=== PATIENT | female | born 1980 ===

== ENCOUNTER 2016-11-14 08:08 | Emergency (ER) | payer BC, OTHER ==
--- NOTE | 2016-11-14 08:27 | UC ---
Throat Pain/Nasal Flex HPI - HPI Summary HPI Summary: complaint of nasal congestion, cough, and body aches that started 5 days ago felt slight shortness of breath d/t coughing on the first day mild sore throat productive cough today denies fever but has chills during the night, denies N/V/D hears wheezing occasionally at night coughing so hard she can't sleep has been taking aleve or ibuprofen with relief - History of Current Complaint Chief Complaint: UCRespiratory Stated Complaint: SOB,COUGH,THROAT Time Seen by Provider: 11/14/16 08:11 Hx Obtained From: Patient Hx Last Menstrual Period: spotting 3 weeks - Allergies/Home Medications Allergies/Adverse Reactions: Allergies Allergy/AdvReac Type Severity Reaction Status Date / Time No Known Allergies Allergy Verified 11/14/16 08:19 Home Medications: Home Medications Aleve 220mg 220 mg PO Q12HR PRN 11/14/16 [History Confirmed 11/14/16] PMH/Surg Hx/FS Hx/Imm Hx Previously Healthy: Yes - Surgical History Surgical History: Yes - 11/2013 - Family History Known Family History: Negative: Cardiac Disease, Hypertension, Diabetes - Social History Occupation: Employed Full-time Lives: With Family Alcohol Use: Rare Substance Use Type: None Smoking Status (MU): Former Smoker Review of Systems Constitutional: Chills, Fatigue Skin: Negative Eyes: Negative ENT: Sore Throat, Nasal Discharge Respiratory: Cough Cardiovascular: Negative Gastrointestinal: Negative Genitourinary: Negative Motor: Negative Neurovascular: Negative Musculoskeletal: Negative Neurological: Negative Psychological: Negative All Other Systems Reviewed And Are Negative: Yes Physical Exam Triage Information Reviewed: Yes Appearance: No Pain Distress, Well-Nourished Vital Signs: Initial Vital Signs Temp 99.7 F 11/14/16 08:11 Pulse 109 11/14/16 08:11 Resp 18 11/14/16 08:11 BP 116/61 11/14/16 08:11 Pulse Ox 98 11/14/16 08:11 Vital Signs Reviewed: Yes Eyes: Positive: Conjunctiva Clear ENT: Positive: Pharyngeal erythema, Nasal congestion, Nasal drainage, TMs normal. Negative: Tonsillar swelling, Tonsillar exudate Neck: Positive: No Lymphadenopathy Respiratory: Positive: Normal breath sounds, No respiratory distress, Wheezing - in upper [place] Cardiovascular: Positive: RRR, No Murmur, Pulses Normal, Brisk Capillary Refill Abdomen Description: Positive: Nontender, Soft Bowel Sounds: Positive: Present Musculoskeletal: Positive: No Edema Neurological: Positive: Alert Psychological Exam: Normal Skin Exam: Normal Re-Evaluation - Re-Evaluation First Eval Re-Evaluation Time: 09:08 Change: Improved Comment: wheezing resolved Throat Pain/Nasal Course/Dx - Course Course Of Treatment: exam completed. wheezing in upper lobes of lungs resolved with asthma. will treat for viral illnes- airway reactive symptoms- followup with PCP - Differential Dx/Diagnosis Differential Diagnosis/HQI/PQRI: URI, Other - bronchitis Provider Diagnoses: viral illness Discharge - Discharge Plan Condition: Stable Disposition: HOME Prescriptions: Albuterol HFA INHALER* [Ventolin HFA Inhaler*] 2 puff INH Q4H PRN #1 mdi PRN Reason: Wheezing Benzonatate CAP* [Tessalon 100 MG CAP*] 100 mg PO TID #30 cap predniSONE TAB* [Deltasone TAB*] 50 mg PO DAILY #5 tab Patient Education Materials: Bronchospasm (ED) Referrals: Radha Gutierrez MD [Primary Care Provider] - Additional Instructions: Please take prednisone as directed Use your albuterol inhaler every 4-6 hours when needed for wheezing, shortness of breath or uncontrolled coughing. Increase fluids and rest Take acetaminophen or ibuprofen for fever or pain Please review your discharge instructions. If your symptoms do not improve please call your primary care provider or return to urgent care.
[2016-11-14] MEDS ORDERED: Albuterol/Ipratropium NEB.SOL* Albuterol 2.5 MG/Ipratropium 0.5 MG 3 ML INH ONE (08:32)
[2016-11-14 08:45] VITALS: BP 116/61
== END 2016-11-14 09:20 | disposition home or self-care (01) ==
LOC: UCCORT 08:08
DX: B34.9 Viral infection, unspecified (principal); Z87.891 Personal history of nicotine dependence
CPT/HCPCS: 99202; A9270-GY; G0463

== ENCOUNTER 2016-11-16 21:29 | Emergency (ER) | payer OTHER ==
[2016-11-16 21:37] VITALS: BP 107/58
[2016-11-16] MEDS ORDERED: Azithromycin TAB* 250 MG PO ONE (21:51)
[2016-11-16] MEDS ORDERED: Ibuprofen TAB* 600 MG PO ONE (21:54)
--- NOTE | 2016-11-16 21:56 | UC ---
Respiratory Complaint HPI - HPI Summary HPI Summary: 36 female presents with complaints of cough, generalized ache and headache, chills and chest congestion that began 7 days ago. Patient was seen here 2 days ago and treated for a viral illness with prednisone, albuterol inhaler and tessalon pearls. Patient has been taking the medications for two days and does not feel they have helped her symptoms. Denies SOB and chest pain, no recent travel or antibiotic use. Denies nausea/vomiting, abdominal pain and ear pain. Admits to an irritated throat from coughing and raspy voice. Denies nasal congestion and sore throat. States cough is productive and appears to be phlegm with a green/yellow color sometimes. Denies PMHx no asthma. No other complaints at this time. No recent sick contacts. Denies current use of tobacco. - History of Current Complaint Chief Complaint: UCRespiratory Stated Complaint: COUGH, CHEST CONGESTION Time Seen by Provider: 11/16/16 21:32 Hx Obtained From: Patient Hx Last Menstrual Period: spotting 3 weeks Onset/Duration: Sudden Onset, Lasting Weeks - 1, Still Present, Worse Since Timing: Constant Severity Initially: Mild Severity Currently: Mild Pain Intensity: 3 Pain Scale Used: 0-10 Numeric Character: Cough: Productive - phlegm, green/yellow tinged sometimes Aggravating Factors: Deep Breaths, Recumbent Position Alleviating Factors: Bronchodilator, OTC Meds, Upright Position Associated Signs And Symptoms: Positive: Fever, Chills, Wheezing, URI - Allergies/Home Medications Allergies/Adverse Reactions: Allergies Allergy/AdvReac Type Severity Reaction Status Date / Time No Known Allergies Allergy Verified 11/16/16 21:37 PMH/Surg Hx/FS Hx/Imm Hx - Additional Past Medical History Additional PMH: Denies diabetes, htn, asthma and copd - Surgical History Surgical History: Yes - Family History Known Family History: Negative: Cardiac Disease, Hypertension, Diabetes - Social History Alcohol Use: Rare Substance Use Type: None Smoking Status (MU): Former Smoker - Immunization History Vaccination Up to Date: Yes Review of Systems Constitutional: Fever, Chills, Fatigue Eyes: Negative ENT: Sore Throat - irritated Respiratory: Cough Cardiovascular: Negative Gastrointestinal: Negative Motor: Negative Musculoskeletal: Myalgia Neurological: Headache All Other Systems Reviewed And Are Negative: Yes Physical Exam Triage Information Reviewed: Yes Appearance: No Pain Distress, Well-Nourished, Ill-Appearing - appears tired and coughing throughout exam Vital Signs: Initial Vital Signs Temp 100.4 F 11/16/16 21:31 Pulse 103 11/16/16 21:31 Resp 20 11/16/16 21:31 BP 107/58 11/16/16 21:31 Pulse Ox 98 11/16/16 21:31 low grade fever noted, tachycardia noted Vital Signs Reviewed: Yes Eyes: Positive: Conjunctiva Clear ENT: Positive: Normal ENT inspection, Hearing grossly normal, Pharynx normal, TMs normal Dental: Negative: Cervical Lymphadenopathy Neck: Positive: Supple, Nontender, No Lymphadenopathy Respiratory: Positive: Chest non-tender, Lungs clear, Normal breath sounds, No respiratory distress, No accessory muscle use, Other: - normal percussion and tactile fremitus. Negative: Respiratory distress, Decreased breath sounds, Accessory muscle use, Crackles, Rhonchi, Stridor, Wheezing, Plerual rub Cardiovascular: Positive: RRR, No Murmur, Pulses Normal, Brisk Capillary Refill Abdomen Description: Positive: Nontender, No Organomegaly, Soft Bowel Sounds: Positive: Present Musculoskeletal: Positive: Strength Intact, ROM Intact Neurological Exam: Normal Neurological: Positive: Alert Psychological Exam: Normal Skin Exam: Normal UC Diagnostic Evaluation - Laboratory O2 Sat by Pulse Oximetry: 98 Respiratory Course/Dx - Course Course Of Treatment: due to vital signs and length of symptoms without improvement. patient will be given an antibiotic at this time. continue prednisone, albuterol and cough medication. NSAIDs for pain and fever. treated with z -pack in case of CAP although lung sounds were normal bilaterally along with O2 sat. X-ray not obtained due to normal PE findings and treatment would not change at this time. Aware of worsening signs and symptoms. given ibuprofen while in office along with first dose of azithromycin. follow up with PCP. fluids and rest. - Differential Dx/Diagnosis Differential Diagnosis/HQI/PQRI: Bronchitis, Laryngitis, Lower Resp Infection, Sinusitis, Other - upper respiratory infection Provider Diagnoses: Acute Bronchitis Discharge - Discharge Plan Condition: Stable Disposition: HOME Prescriptions: Azithromycin TAB* [Zithromax TAB (Z-DINH) 250 mg #6 tabs] 250 mg PO DAILY #4 tab Patient Education Materials: Acute Bronchitis (ED), Bronchospasm (ED) Referrals: Radha Gutierrez MD [Primary Care Provider] - Additional Instructions: Continue taking your steroids, cough medication and using your inhaler as prescribed a few days ago. Take Aleve or Ibuprofen for pain and fever with food. Take prescribed antibiotic as directed until entire dose is finished. Drink plenty of fluids and get plenty of rest. Give your symptoms 5-7 days for some improvement. Follow up with PCP. Return if symptoms worsen or do not improve within the next week.
== END 2016-11-16 22:01 | disposition home or self-care (01) ==
LOC: UCCORT 21:29
DX: J20.9 Acute bronchitis, unspecified (principal); Z87.891 Personal history of nicotine dependence
CPT/HCPCS: 99212; A9270-GY; G0463